=== PATIENT | female | born 1990 | race Hispanic/Latino ===

== ENCOUNTER 2017-11-11 18:43 | Emergency (ER) | payer OTHER ==
[2017-11-11] MEDS ORDERED: IBUPROFEN 600 MG TABLET ONE (19:22)
[2017-11-11] MEDS ORDERED: SULFAMETHOX-TMP DS 800/160 TAB ONE (19:22)
== END 2017-11-11 19:39 | disposition home or self-care (01) ==
LOC: EDH 18:43
DX: L02.31 Cutaneous abscess of buttock (principal)